=== PATIENT | male | born 1960 | race Hispanic/Latino ===

== ENCOUNTER → 2024-11-24 | Day surgery (SDC) | payer MEDICARE ==
[2024-11-14 13:13] LABS: BASOPHILS # (AUTO) 0.1 (0.0-0.1); BASOPHILS % 0.7 % (0.0-1.0); EOSINOPHILS # (AUTO) 0.2 (0.0-0.4); EOSINOPHILS % 2.5 % (0.0-6.0); HEMATOCRIT 46.2 % (38.2-49.6); HEMOGLOBIN 14.3 g/dL (14.0-18.0); LYMPHOCYTES # (AUTO) 2.5 (1.0-3.2); LYMPHOCYTES % 26.7 % (18.0-39.1); MEAN CORPUSCULAR HEMOGLOBIN 31.2 pg (28-32); MEAN CORPUSCULAR VOLUME 100.9 fL (81-99); MONOCYTES # (AUTO) 0.8 (0.2-0.8); MONOCYTES % 8.4 % (4.4-11.3); NEUTROPHILS # (AUTO) 5.7 (2.1-6.9); NEUTROPHILS % 61.2 % (38.7-80.0); PLATELET COUNT 221 x10e3/uL (140-360); RED BLOOD COUNT 4.58 x10e6/uL (4.3-5.7); WHITE BLOOD COUNT 9.34 x10e3/uL (4.8-10.8)
[~2024-11-24] MED LIST: ALBUTEROL 90 MCG/ACT INHALER INH ONE; ALFUZOSIN HCL10 MG PO; ATORVASTATIN CA10 MG PO; D3-5000125 MCG; FENTANYL CITRATE/PF 100MCG/2 ML INJ ONE; GLYCOPYRROLATE INJ 0.2 MG/ML VIAL ONE; KETOROLAC TROMETHAMINE 30 MG/ML VIAL ONE; LIDOCAINE HCL 2% LOCAL INJ 5 ML SDV VIAL INJ ONE; LISINOPRIL20 MG PO; MIDAZOLAM HCL 2 MG/2 ML VIAL ONE; NITROFURANTOIN100 MG PO; ONDANSETRON HCL INJ 2MG/ML 2ML 2 MG/ML VIAL ONE; PROPOFOL IV EMULSION 10 MG/ML 20 ML VIAL ONE
[2024-11-24] MEDS: LACTATED RINGER'S 1,000 ML ONE (06:11)
[2024-11-24 08:55] VITALS: TEMP 97.6
[2024-11-24 10:00] VITALS: BP 135/82; PULSE 97; RESP 16; O2SAT 96
== END | disposition home or self-care (01) ==
LOC: OR 05:22
PROVIDERS: ATTEND Podiatrist Foot & Ankle Surgery
DX: S93.492A Sprain of other ligament of left ankle, initial encounter (principal); S93.412A Sprain of calcaneofibular ligament of left ankle, initial encounter; M24.872 Other specific joint derangements of left ankle, not elsewhere classified; S86.312A Strain of muscle(s) and tendon(s) of peroneal muscle group at lower leg level, left leg, initial encounter; M25.775 Osteophyte, left foot; J00 Acute nasopharyngitis [common cold]; I10 Essential (primary) hypertension; E78.5 Hyperlipidemia, unspecified; F17.200 Nicotine dependence, unspecified, uncomplicated; X58.XXXA Exposure to other specified factors, initial encounter; Z01.810 Encounter for preprocedural cardiovascular examination; Z79.899 Other long term (current) drug therapy
CPT/HCPCS: 27620; 27696; 28200; 36415; 76000; 85025; 88304; 88311; 93005; C1713; J0690; J1885; J2003; J2250; J2405; J2704; J3010; J7121; Q4150

== ENCOUNTER → 2025-02-25 | Outpatient (RCR) | payer MEDICARE ==
[~2025-02-25] MED LIST changes: -ALBUTEROL 90 MCG/ACT INHALER INH ONE; -FENTANYL CITRATE/PF 100MCG/2 ML INJ ONE; -GLYCOPYRROLATE INJ 0.2 MG/ML VIAL ONE; -KETOROLAC TROMETHAMINE 30 MG/ML VIAL ONE; -LIDOCAINE HCL 2% LOCAL INJ 5 ML SDV VIAL INJ ONE; -MIDAZOLAM HCL 2 MG/2 ML VIAL ONE; -ONDANSETRON HCL INJ 2MG/ML 2ML 2 MG/ML VIAL ONE; -PROPOFOL IV EMULSION 10 MG/ML 20 ML VIAL ONE
== END ==
LOC: PT 01-27 08:19
PROVIDERS: ATTEND Podiatrist Foot & Ankle Surgery
DX: M24.872 Other specific joint derangements of left ankle, not elsewhere classified (principal); S93.492A Sprain of other ligament of left ankle, initial encounter; S93.412A Sprain of calcaneofibular ligament of left ankle, initial encounter; S86.312A Strain of muscle(s) and tendon(s) of peroneal muscle group at lower leg level, left leg, initial encounter; M25.775 Osteophyte, left foot